=== PATIENT | female | born 1995 | race Caucasian/White ===

== ENCOUNTER 2018-11-25 12:01 | Emergency (ER) | payer SELFPAY ==
[~2018-11-25] VITALS: Ht 152.4 cm; Wt 51.0 kg
[2018-11-25 12:04] VITALS: Ht 152.4 cm; Wt 51.0 kg
[2018-11-25] MEDS ORDERED: ONDANSETRON (ODT) 4 MG TAB ODT STA (13:15)
[2018-11-25] MEDS ORDERED: ONDA4TAB8 PO (13:18)
[2018-11-25] MEDS ORDERED: IBUP-1561 PO (13:18)
--- NOTE | 2018-11-25 14:59 | ERD ---
ER Documentation Chief Complaint Chief Complaint VOMITING AND DIARRHEA HPI This is a 23-year-old female patient who presents emergency room with complaint of vomiting and diarrhea x1 day. Patient states that she has had multiple co- occurring vomiting and diarrhea episodes without fever, hematemesis, melena or hematochezia, no abdominal pain. No dysuria. Patient states 2 days ago she ate some shrimp that she thinks may have been bad. No recent travel, no sick contacts. Patient alert, appropriate at time of evaluation. No chronic medical conditions. ROS All systems reviewed and are negative except as per history of present illness. Medications Home Meds Active Scripts Ibuprofen* (Motrin*) 400 Mg Tab, 400 MG PO Q6, #30 TAB Prov:BIPIN ROJO MOLDER SWEEP 11/25/18 Ondansetron Hcl* (Zofran*) 4 Mg Tablet, 4 MG PO Q6H for NAUSEA AND/OR VOMITING, #15 TAB Prov:BIPIN ROJO MOLDER SWEEP 11/25/18 Allergies Allergies: Coded Allergies: No Known Allergy (Unverified , 11/25/18) PMhx/Soc Medical and Surgical Hx: pt denies Medical Hx, pt denies Surgical Hx Hx Alcohol Use: No Hx Substance Use: No Hx Tobacco Use: Yes Smoking Status: Current some day smoker FmHx Family History: No diabetes, No coronary disease, No other Physical Exam Vitals Vital Signs Date Temp Pulse Resp B/P (MAP) Pulse Ox O2 O2 Flow FiO2 Time Delivery Rate 11/25/18 98.2 77 18 121/78 99 Room Air 15:06 (92) 11/25/18 98.2 89 18 132/91 99 12:04 (105) Physical Exam Const: No acute distress Head: Atraumatic Eyes: Normal Conjunctiva ENT: Normal External Ears, Nose and Mouth. Pharynx pink, moist, no lesions, no exudate. Neck: Full range of motion. No meningismus. No lymphadenopathy Resp: Clear to auscultation bilaterally, no wheezing Cardio: Regular rate and rhythm, no murmurs Abd: Soft, non tender, non distended. Normal bowel sounds, no bruising, no guarding Skin: No petechiae or rashes, skin turgor less than 2 seconds, color consistent for ethnicity Back: No midline or flank tenderness, no CVT Ext: No cyanosis, or edema Neur: Awake and alert Psych: Normal Mood and Affect Results 24 hrs Laboratory Tests Test 11/25/18 13:18 11/25/18 13:19 POC Beta HCG, Qualitative NEGATIVE Bedside Urine pH (LAB) 6.0 Bedside Urine Protein (LAB) 2+ Bedside Urine Glucose (UA) Negative Bedside Urine Ketones (LAB) 2+ Bedside Urine Blood 1+ Bedside Urine Nitrite (LAB) Negative Bedside Urine Leukocyte Esterase (L Negative Current Medications Medications Dose Sig/Gonzalez Start Time Status Last (Trade) Ordered Route PRN Stop Time Admin Dose Reason Admin Ondansetron 4 mg ONCE STAT 11/25/18 DC 11/25/18 HCl (Zofran ODT 13:15 13:19 Odt) 11/25/18 13:17 Procedures/MDM PROCEDURES/MDM DIAGNOSTIC IMAGING: Read by radiologist. Not indicated LAB INTERPRETATION: Urine negative, urinalysis negative for UTI -Medications: Zofran Patient tolerated medication well with no adverse reactions. Patient reported improvement in nausea. MDM: This is an otherwise healthy and well 23-year-old who has had 1 day of vomiting and diarrhea, likely a viral gastroenteritis or possibly a foodborne illness. Patient is afebrile, no abdominal pain, nontoxic appearance. Patient was provided with the antinausea medication Zofran and given a p.o. challenge. Patient did not vomit during ED course and states she feels safe to go home with prescription for Zofran to ensure hydration. Without culture results, a preliminary diagnosis of undifferentiated (viral. bacterial or other type) gastroenteritis is made. Although this case is most consistent with a self limiting form of gastroenteritis, no evaluation can entirely exclude other, more serious causes. The usual precautions and warning signs were discussed. The patient was warned to return immediately for worsening symptoms or any concerns. They were advised to seek immediate follow-up with the PMD if the illness does not follow the usual course of gastroenteritis as discussed. The patient looked well during ED observation. The vomiting and diarrhea were managed in the usual manner with good results. Hydration status was addressed. We verified the patient's ability tolerate PO fluids. Oral rehydration therapy instructions and dietary recommendations were provided. Use of antibiotics in undifferentiated gastroenteritis can lead to problems with certain bacterial etiologies. Since bacterial gastroenteritis is usually self limiting and requires only supportive care, antibiotics were not used to reduce the risk of prolonged carrier state, hemolytic-uremic syndrome and C. diff colitis. DISPOSITION and PLAN: RX: Zofran, ibuprofen The patient has been discharge home to follow-up with community physician. Departure Diagnosis: Primary Impression: Nausea, vomiting, and diarrhea Condition: Stable Patient Instructions: Traveler's Diarrhea (6Y-Adult) Referrals: [facility] YOU HAVE RECEIVED A MEDICAL SCREENING EXAM AND THE RESULTS INDICATE THAT YOU DO NOT HAVE A CONDITION THAT REQUIRES URGENT TREATMENT IN THE EMERGENCY DEPARTMENT. FURTHER EVALUATION AND TREATMENT OF YOUR CONDITION CAN WAIT UNTIL YOU ARE SEEN IN YOUR DOCTORS OFFICE WITHIN THE NEXT 1-2 DAYS. IT IS YOUR RESPONSIBILITY TO MAKE AN APPOINTMENT FOR FOLOW-UP CARE. IF YOU HAVE A PRIMARY DOCTOR --you should call your primary doctor and schedule an appointment IF YOU DO NOT HAVE A PRIMARY DOCTOR YOU CAN CALL OUR PHYSICIAN REFERRAL HOTLINE AT IF YOU CAN NOT AFFORD TO SEE A PHYSICIAN YOU CAN CHOSE FROM THE FOLLOWING [facility] [id number] [facility] [address] [facility] [address] [facility] [address] [facility] [address] [facility] [facility] [address] [facility]. [facility]. [address] Additional Instructions: Thank you very much for allowing us to participate in your care. Your health and safety is our top priority at [facility]. Call your primary care doctor TOMORROW for an appointment during the next 2-4 days and bring all the information and medications prescribed. Have prescriptions filled and follow precisely the directions on the label. If the symptoms get worse and your provider is unavailable, return to the Emergency Department immediately. BIPIN ROJO NP Nov 25, 2018 14:59
[2018-11-25 15:06] VITALS: BP 121/78; PULSE 77; RESP 18
== END 2018-11-25 15:08 | disposition home or self-care (01) ==
LOC: FTE 12:01
DX: R19.7 Diarrhea, unspecified (principal); R11.2 Nausea with vomiting, unspecified; F17.210 Nicotine dependence, cigarettes, uncomplicated
CPT/HCPCS: 81003; 81025; 99283